=== PATIENT | female | born 1945 | race Caucasian/White ===

== ENCOUNTER 2019-09-03 09:30 | Emergency (ER) | payer MEDICARE, OTHER, SELFPAY ==
[2019-09-03 09:44] VITALS: BP 135/73; PULSE 85; RESP 16; TEMP 36.7; O2SAT 98
--- NOTE | 2019-09-03 09:56 | ED.EYEPROB ---
HPI - Eye Problem General Chief complaint: Eye Problems Stated complaint: right eye Time Seen by Provider: 09/03/19 09:57 Source: patient and RN notes reviewed Mode of arrival: ambulatory Limitations: no limitations History of Present Illness HPI Narrative: This is a 74 years old female presented office for evaluation of right eye irritations for 2 weeks. Symptoms are worsening for the last couple day. Symptoms described as eye irritation with foreign body sensation. Denies eye injury or trauma. Admits to history of glaucoma in the same eye. She did not try to contact her eye doctor. She takes baby aspirin every day. Related Data Home Medications Medication Instructions Recorded Confirmed alpha lipoic acid 200 mg PO DAILY 09/03/19 09/03/19 aspirin [Aspirin Childrens] 81 mg PO DAILY 09/03/19 09/03/19 atorvastatin 20 mg PO DAILY 09/03/19 09/03/19 bimatoprost [Lumigan] 1 drp OPHTHALMIC (EYE) DAILY 09/03/19 09/03/19 bupropion HCl 150 mg PO QAM 09/03/19 09/03/19 cholecalciferol (vitamin D3) 1,250 mcg PO WEEKLY 09/03/19 09/03/19 cyanocobalamin (vitamin B-12) 100 mcg PO DAILY 09/03/19 09/03/19 hydrochlorothiazide 25 mg PO DAILY 09/03/19 09/03/19 levothyroxine 200 mcg PO DAILY 09/03/19 09/03/19 liothyronine 25 mcg PO DAILY 09/03/19 09/03/19 metformin 500 mg PO DAILY 09/03/19 09/03/19 Allergies Allergy/AdvReac Type Severity Reaction Status Date / Time No Known Allergies Allergy Verified 09/03/19 10:01 Review of Systems Review of Systems: Narrative: CONSTITUTIONAL: Denies fever or feeling ill EYES: Denies visual changes; however reports right eye redness, discharge and irritation. ENT: Denies congestion CARDIOVASCULAR: Denies chest pain RESPIRATORY: Denies dyspnea GASTROINTESTINAL: Denies abdominal pain, nausea, vomiting SKIN: Denies rash MUSCULOSKELETAL: Denies acute back pain NEUROLOGIC: Denies lightheaded PMFSH Past Medical History Medical History Diabetes mellitus, type II History of glaucoma HLD (hyperlipidemia) HTN (hypertension) Hypothyroidism Surgical History Surgical History Hx of thyroidectomy Comments At time of signature, I agree with nursing past medical, surgical, social and family history. There is no relevant family history pertinent to the presenting complaint. Exam Narrative: Exam Narrative: GENERAL: This is a well-nourished, well-developed patient, in no apparent distress. EYES: PERRL. Left Sclera clear/white. Right conjunctive are injected with a small black foreign body/lesion at 6'clock. Vision is grossly intact. She wears glasses. Topical anesthetic was instilled with good anesthesia using 1gtt of opth anesthetic agent (tetracaine) into right eye. Fluorescein stain of the R eye was performed showed uptake of dye at 6oclock. No epithelial defect was noted. NO FB, ulcer or dendritic lesions. Upper lid was everted and no FB or lesions were noted. Normal saline irrigation eye solution was performed and the patient tolerated the procedure well, no adverse reaction or complications. CARDIOVASCULAR: Regular rate and rhythm without murmurs, gallops, or rubs. RESPIRATORY: Clear to auscultation. Breath sounds equal bilaterally. No wheezes, rales, or rhonchi. GASTROINTESTINAL: Abdomen soft, non-tender, nondistended. Bowel sounds are active. No guarding. NEURO: awake, alert, and oriented to person, place and time. There were no obvious focal neurologic abnormalities. Steady gait Billy Coma Scale Eye Opening: Spontaneous 4 Billy Coma Scale Motor: Obeys Commands 6 [place] Coma Scale Verbal: Oriented 5 Course Vital Signs Vital signs: Vital Signs Temperature 98.1 F 09/03/19 09:44 Pulse Rate 85 09/03/19 09:44 Respiratory Rate 16 09/03/19 09:44 Blood Pressure 135/73 09/03/19 09:44 Pulse Oximetry 98 09/03/19 09:44 Temperature 98.1 F 09/03/19 09:44 Pulse Rate
== END 2019-09-03 10:30 | disposition home or self-care (01) ==
PROVIDERS: Emergency Provider Nurse Practitioner; PCP Internal Medicine
DX: S05.01XA Injury of conjunctiva and corneal abrasion without foreign body, right eye, initial encounter (principal); Z79.82 Long term (current) use of aspirin; E11.9 Type 2 diabetes mellitus without complications; E78.5 Hyperlipidemia, unspecified; I10 Essential (primary) hypertension; E03.9 Hypothyroidism, unspecified; H40.9 Unspecified glaucoma
CPT/HCPCS: 99203; A9270; G0463

== ENCOUNTER 2023-10-01 09:10 | Outpatient (CLI) | payer MEDICARE, OTHER, SELFPAY ==
--- NOTE | ~2023-10-01 | XR_ITS ---
EXAMINATION: XR hip LT 2V w AP pelvis DATE: 10/01/2023 07:32 INDICATION: Unilateral primary osteoarthritis, left hip. TECHNIQUE: An anteroposterior view of the pelvis and 2 views of left hip were obtained. COMPARISON: Pelvis and hip radiograph 11/21/2021 FINDINGS: Bone alignment is normal. No fracture. There is severe right hip osteoarthritis. There is a dvanced left hip osteoarthritis with flattening at superior femoral head and enlargement of the aceta bulum. IMPRESSION: 1. Advanced left hip osteoarthritis with bone volume loss. 2. Severe right hip osteoarthritis. Reviewed, dictated and finalized at location A.
--- NOTE | 2023-10-01 09:27 | ECG_ITS ---
Test Date: 2023-10-01 09:34:19 Measurements Intervals [place] Rate: 63 P: 35 [place]: 180 QRS: -12 QRSD: 89 T: 7 QT: 418 QTc: 430 Interpretive Statements SINUS RHYTHM MINIMAL Q WAVES- HIGH LATERAL LEADS NONSPECIFIC T-WAVE ABNORMALITY- ANT/INF LEADS BORDERLINE ECG No previous ECG available for comparison Electronically Signed On 10-01-2023 10:47:52 CDT by Jh Pereyra D.O.
[2023-10-01 09:30] LABS: Hematocrit 39.2 % (37.0-47.0); Hemoglobin 12.8 g/dL (12.0-15.0)
[2023-10-01 10:37] LABS: Hemoglobin A1C 5.6 % (<5.7)
[2023-10-01 11:23] LABS: Estimated Glomerular Filt Rate > 60; Glucose 99 mg/dL (65-110)
== END 2023-10-01 09:11 | disposition home or self-care (01) ==
PROVIDERS: PCP Internal Medicine; Visit Provider Orthopaedic Surgery
DX: Z01.818 Encounter for other preprocedural examination (principal); M16.0 Bilateral primary osteoarthritis of hip; E11.9 Type 2 diabetes mellitus without complications; I10 Essential (primary) hypertension
CPT/HCPCS: 36415; 73502; 82040; 82565; 82947; 83036; 85014; 85018; 93005

== ENCOUNTER 2023-11-11 07:35 | Outpatient (CLI) | payer MEDICARE, OTHER, SELFPAY ==
[2023-11-11 09:16] LABS: Basophils Percent Auto 0.3 % (0.2-1.2); Eosinophils Absolute Auto 0.3 K/mm3 (0-0.3); Eosinophils Percent Auto 3.2 % (0-4.4); Hematocrit 39.7 % (37.0-47.0); Hemoglobin 12.5 g/dL (12.0-15.0); Immature Granulocyte Absolute 0.03 K/mm3 (0.00-0.031); Immature Granulocyte Percent A 0.3 % (0-0.5); Lymphocytes Absolute Auto 2.08 K/mm3 (0.9-3.2); Mean Corpuscular HGB Conc 31.5 g/dl (32-36); Mean Corpuscular Hemoglobin 28.6 pg (26-34); Mean Corpuscular Volume 90.8 fl (80-100); Mean Platelet Volume 8.9 fl (7.4-10.4); Monocytes Absolute Auto 0.5 K/mm3 (0.1-0.6); Monocytes Percent Auto 5.9 % (2.6-8.5); Neutrophils Absolute Auto 5.7 K/mm3 (1.3-6.7); Neutrophils Percent Auto 66.3 % (45.5-73.1); Platelet Count Result 197 k/mm3 (150-375); Red Blood Count 4.37 M/mm3 (4.2-5.4); Red Cell Distribution Width 13.7 % (11.5-14.5); White Blood Count 8.7 K/mm3 (4.5-10.0)
[2023-11-11 09:36] LABS: Anion Gap 7 mmol/L (4-12); Blood Urea Nitrogen 22 mg/dL (7-17); Calcium 9.1 mg/dL (8.4-10.2); Carbon Dioxide 30 mmol/L (22-30); Chloride 99 mmol/L (98-107); Estimated Glomerular Filt Rate > 60; Glucose 96 mg/dL (65-110); Potassium 4.6 mmol/L (3.4-5.0); Sodium 136 mmol/L (137-145)
[2023-11-11 09:53] LABS: Urine Cotinine NEGATIVE
[2023-11-11 10:27] LABS: MRSA (PCR) NOT DETECTED (NOT DETECTE)
== END 2023-11-11 07:36 | disposition home or self-care (01) ==
LOC: ANHSURGERY 07:40
PROVIDERS: Anesthesiology; PCP Internal Medicine; Visit Provider Orthopaedic Surgery
DX: Z01.818 Encounter for other preprocedural examination (principal); M16.12 Unilateral primary osteoarthritis, left hip; E11.9 Type 2 diabetes mellitus without complications
CPT/HCPCS: 36415; 80048; 80307; 82040; 85025; 87641

== ENCOUNTER 2023-12-09 00:22 | Day surgery (SDC) | payer MEDICARE, OTHER, SELFPAY ==
[2023-11-11 07:47] VITALS: BMI 37.8
--- NOTE | 2023-11-11 08:18 | PC.NURSE ---
Report to the Outpatient Waiting Room, entrance under the green pavilion located off [facility], at time _9:30 AM on date _12/09/23 . Planned Procedure Time: _11:30 AM . Time changes happen often and if your time is changed the preop area will call you the afternoon before. - You and your visitor will be asked to self-screen and do not enter if you have any COVID symptoms. - A mask is optional within the hospital at this time. Patients may have clear liquids (water, carbonated beverages, clear teas, apple juice) until 3 hours prior to surgery(8:30 AM) with a maximum of 20 ounces. - No food from midnight until time of surgery - Infants may have breast milk until 4 hours before surgery, infant formula 6 hours prior to surgery. - Children will be allowed to drink immediately following surgery. If applicable, please bring a bottle or sippy cup to assist with drinking. Juice, water, soda, and popsicles are readily available. For infants on formula, please bring formula the day of surgery. Pacifiers are allowed. Take the following medications with a SIP of water the morning of surgery: ___ESCITALOPRAM,LEVOTHYROXINE,TIMOLOL EYE DROP,LUMIGAN EYE DROP DO NOT STOP ANY OF YOUR OTHER PRESCRIPTION MEDICATIONS PRIOR TO SURGERY ?EXCEPT THE FOLLOWING Medications to discontinue per physician _HOLD ALL VITAMINS AND SUPPLEMENTS 3 DAYS PRE OP.LAST DOSE 12/05/23_. MAY CONTINUE CELECOBIX___ Please no make-up, nail mohawk, hairspray, perfume, deodorant, or body powder the day of surgery. No jewelry (including any body piercings) or valuables the day of surgery, leave them at home. Please take a shower or bath the night before, or the morning of, surgery with an antibacterial soap. Wear comfortable, loose fitting clothing. Children are encouraged to wear pajamas. - Jewelry must be removed prior to entering the operating room. Rings and piercings that are not removed may be cut off. - The hospital will not accept responsibility for valuables. - Please leave all valuables, including medications, at home the day of surgery. If you are going home after surgery, a licensed sprinkler driver must drive you home. - NO public transportation without another adult if you receive anesthesia. - We recommend that an adult stay with you for 24 hours following discharge. - We also recommend that you do not drive, make important decision, drink alcoholic beverages, or take any drugs that were not prescribed by your health care provider for at least 24 hours after your discharge time. Follow any additional instructions given to you from your surgeon. If you or anyone in your household have experienced Covid symptoms in the past week, please notify your surgeon or the nurse liaison at the phone number below for possible testing. VERBAL AND WRITTEN instructions given to _PATIENT AND DAUGHTER LAY and asked if any additional questions and then verbalized understanding. Patient advised to call surgeon office or pre surgery nurse liaison [phone] if any additional questions.
[2023-11-11 08:41] VITALS: BP 147/72; PULSE 61; RESP 18; TEMP 36.7; O2SAT 98
[2023-12-09] VITALS (13 sets, daily range): BP systolic 111–158; BP diastolic 50–78; PULSE 69–88; RESP 13–20; TEMP 36.3–36.8; O2SAT 91–99
--- NOTE | ~2023-12-09 | XR_ITS ---
EXAMINATION: XR hip LT min 2V DATE: 12/09/2023 14:22 INDICATION: Total left hip arthroplasty. Postop. TECHNIQUE: 2 views of left hip were obtained. COMPARISON: Left hip radiographs 11/10/2023 FINDINGS: There is a total left hip arthroplasty in near-anatomic alignment. No fracture. There is ga s in the soft tissues, consistent with recent surgery. IMPRESSION: 1. Total left hip arthroplasty in near-anatomic alignment. Reviewed, dictated and finalized at location A.
[2023-12-09] MEDS: ACETAMINOPHEN 500 MG TABLET 1000 MG PO (09:25)
[2023-12-09 09:44] LABS: Glucose Point of Care 94 mg/dl (65-105)
[2023-12-09] MEDS: LACTATED RINGERS 1,000 ML 30 ML IV CONT ×2 (10:00→13:58)
--- NOTE | 2023-12-09 11:18 | WPDHPUPDATE1 ---
History and Physical Update Update Date/Time: 12/09/23 11:18 History and Physical has been reviewed, including an updated exam of the patient. There are NO changes in the patient's condition. Risks, benefits, and alternatives have been discussed and questions answered. Patient agrees to proceed with procedure.
[2023-12-09] MEDS: TRANEXAMIC ACID 1,000MG/ISO100 1,000 MG/100 ML BAG 200 MG IVPB ×2 (11:25→13:42)
--- NOTE | 2023-12-09 11:25 | WPDANESEPPF ---
Anes - Initial Pre Proc Eval Procedure: Operation Date: 12/09/23 11:30 Proposed Procedures p Left Total Hip Arthroplasty - William Jensen MD Date/Time: 12/09/23 11:25 Surgeon: William Jensen MD Pre Op Diagnosis: Prim O A Lt Hip Patient Data Age: 78 Gender: F Height: 1.64 m Weight: 101.3 kg Last Vital Signs Temp 36.3 C L 12/09/23 09:50 Pulse 69 12/09/23 09:50 Resp 16 12/09/23 09:50 BP 151/67 H 12/09/23 09:50 Pulse Ox 98 12/09/23 09:50 O2 Del Method Room Air 12/09/23 09:50 Allergies Allergy/AdvReac Type Severity Reaction Status Date / Time No Known Allergies Allergy Verified 12/09/23 10:01 Home Medications Medication Instructions Recorded Confirmed Type alpha lipoic acid 200 mg tablet 200 mg PO DAILY 09/03/19 12/09/23 History bimatoprost 0.01 % eye drops 1 drp ophthalmic (eye) DAILY 09/03/19 12/09/23 History (Lumigan) cyanocobalamin (vitamin B-12) 100 100 mcg PO DAILY 09/03/19 12/09/23 History mcg tablet hydrochlorothiazide 25 mg tablet 25 mg PO DAILY 09/03/19 12/09/23 History levothyroxine 200 mcg tablet 200 mcg PO EVERY OTHER DAY 09/03/19 12/09/23 History escitalopram oxalate 20 mg tablet 20 mg PO DAILY 11/21/21 12/09/23 History glimepiride 1 mg tablet 1 mg PO QAM 11/21/21 12/09/23 History quetiapine 50 mg tablet 50 mg PO QHS 11/21/21 12/09/23 History semaglutide 0.25 mg or 0.5 mg (2 0.25 mg subcut WEEKLY 11/21/21 12/09/23 History mg/1.5 mL) subcutaneous pen injector (Ozempic) timolol maleate 5 mg tablet 5 mg PO BID 11/21/21 12/09/23 History acetaminophen 500 mg capsule 1,000 mg PO Q6H PRN Pain 11/11/23 12/09/23 History atorvastatin 40 mg tablet 40 mg PO DAILY 11/11/23 12/09/23 History celecoxib 200 mg capsule 200 mg PO DAILY 11/11/23 12/09/23 History cholecalciferol (vitamin D3) 50 50 mcg PO DAILY 11/11/23 12/09/23 History mcg (2,000 unit) capsule levothyroxine 175 mcg tablet 175 mcg PO EVERY OTHER DAY 11/11/23 12/09/23 History Laboratory Tests 12/09/23 12/09/23 09:21 09:42 POC Capillary Glucose 94 mg/dl (65-105) Blood Type O Positive Antibody Screen Negative Patient hx anesthesia problems: none Family hx anesthesia problems: none Results Review: All pre-operative results and documents have been reviewed as part of the pre-operative evaluation. [facility] Past Medical History Medical History Bilateral hip joint arthritis Diabetes mellitus, type II History of glaucoma History of thyroid cancer HLD (hyperlipidemia) HTN (hypertension) Hypothyroidism Surgical History Surgical History History of knee replacement both History of rotator cuff surgery both Hx of thyroidectomy (~1978) Social History Social History Smoking status: Never smoker Additional smoking assessment comments: DENIES ANY FORM OF TOBACCO USE Alcohol intake: never Substance use: never Lack of Transportation: YES Lack of Food: Never True Current Housing: I Have Housing Concerned About Future Housing: No Difficulty Paying Gas/Electric Bills: No Difficulty Paying for Meds: No Currently Unemployed: No Education: High School Diploma/GED Difficulty w/ Childcare or Family Care: No Living arrangements: with family Spiritual care concerns: No Anes - Eval Final PreProcedure Day of Procedure 12/09/23 11:25 Patient weight: obese Heart: regular rate and rhythm Lungs: clear to auscultation Airway: Mallampati scale class II Neurological: alert and oriented Last oral intake: >/= 8 hours ASA classification: III Emergent: no Anesthetic plan: proceed Anesthesia type and monitoring: general ETT and standard monitoring Results Review: All pre-operative results and documents have been reviewed as part of the pre-operative evaluation. Inf
[2023-12-09] MEDS: ceFAZolin 2 GM/D5W 50 ML 2 GM/50 ML BAG IVPB ×2 (11:46→20:03)
[2023-12-09] MEDS: SODIUM CHLORIDE 0.9% IV 37.7 ML, MORPHINE SULFATE INJ (*CRX) 2 MG, ROPivacaine HCL 1% 2... INFILTRATE (12:39)
--- NOTE | 2023-12-09 14:02 | W.PM.PROC2 ---
Procedure Note - Detailed Date of Procedure 12/09/23 Pre-op Diagnosis Advanced arthritis left hip. 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 Extreme contracture of the hip. Description of Procedure The patient was given preoperative antibiotics. A general anesthetic was administered. The patient was carefully placed in the lateral decubitus position on the PEG board. The shoulders and hips were carefully positioned for component and leg length positioning reference. The hip was prepped and draped in the usual sterile fashion. A longitudinal incision was created over the posterior aspect of the greater trochanter. Careful dissection was brought down through the deep fascia with electrocautery. A minimally invasive optimized posterior approach to the hip was performed. The short external rotators and capsule were taken down in an L-shaped capsulotomy. The tissue was tagged for later repair using number 2 high strength suture. The femoral neck was measured and taken in situ. The femoral head was removed. The acetabulum was carefully exposed. The inferior capsule was released. The labrum was resected. The acetabulum was sequentially reamed to the intended cup size. The cup was impacted into position with excellent press-fit. Typical anatomic landmarks, including the bony contact points as well as the inferior transverse acetabular ligament were used to confirm cup positioning with preoperative templating. Attention was turned to the femur, which was carefully exposed. The hip was reamed and then broached sequentially. Excellent press-fit was obtained with the broach. The hip was trialed. Measurements were utilized, including the lesser trochanter as well as the center of the femoral head and the tip of the trochanter, and excellent assessment of the offset and leg lengths were confirmed. The real component was impacted into position. Trialing confirmed appropriate leg length and offset with soft tissue balancing as well apparent feel of the leg, both at the knee and the heel. Soft tissues were assessed using the the iliotibial band. Reduction of the posterior capsule and external rotators were also used as a secondary assessment. The hip was copiously irrigated with pulsatile lavage periodically throughout the procedure. The real components were then assembled and reduced. The hip was stable throughout typical maneuvers, including extension, external rotation to 70 degrees, the position of sleep as well as flexion to 90 degrees with internal rotation past 35 degrees. The shake test confirmed stability without impingement. Osteophytes were removed as necessary. The short external rotators and capsule were repaired back to the posterior trochanter through drill holes. The deep fascia was repaired with running number 2 barbed suture, followed by 2-0 Stratafix suture and 3-0 Stratafix suture in the dermis. Steri-Strips were placed on the skin, followed by a sterile occlusive dressing. There were no complications. Meticulous hemostasis was maintained with the AquaMantys device. The patient was brought to the recovery room in stable condition. There were no complications. Physician appeals assistant, Colette Celestin PA-C, required for surgery; including patient positioning, draping, tissue retraction, maintaining instrument position, hip dislocation/ relocation, wound closure, and dressing placement. Implants The Accolade II hip stem, 127 degree size 3 , was utilized with excellent press-fit. The 54 mm Trident II acetabular component was impacted with excellent press-fit stability. 10 degree elevated polyethylene liner the -2.5, 36 mm Biolox ceramic femoral head was utilized. Estimated Blood Loss 500 Drains No Packing No Pathology None sent Compli
[2023-12-09 14:12] LABS: Glucose Point of Care 186 mg/dl (65-105)
[2023-12-09] MEDS: fentaNYL CITRATE INJ (*CRX) 100 MCG/2 ML VIAL 25 MCG IV PUSH ×4 (14:20→14:43)
--- NOTE | 2023-12-09 15:27 | ADMGEN ---
This patient, Arabella Berrios, was admitted to [facility]. Patient/family oriented to hospital policies and general routines including ID bracelet, bed and alarms, visiting hours, pain management, procedures, bathroom and other care routines, personal items, smoking policy, room service/diet, and visiting hours. Information on how to activate the Rapid Response Team has been discussed. Patient/Family are encouraged to report perceived risks to care and to ask questions if they do not understand what they are told or what they should do.
[2023-12-09] MEDS: oxyCODONE/ACETAMINOPHEN (*CRX) 5-325 MG TABLET 1 TABLET PO ×2 (16:12→20:02)
[2023-12-09] MEDS: hydroCHLOROthiazide 25 MG TABLET PO (16:54)
[2023-12-09] MEDS: ATORVASTATIN 40 MG TABLET PO (16:54)
[2023-12-09] MEDS: ESCITALOPRAM OXALATE 10 MG TABLET 20 MG PO (16:55)
[2023-12-09 17:07] LABS: Hemoglobin 12.2 g/dL (12.0-15.0); Mean Corpuscular HGB Conc 31.3 g/dl (32-36); Mean Corpuscular Hemoglobin 28.4 pg (26-34); Mean Corpuscular Volume 90.7 fl (80-100); Mean Platelet Volume 8.8 fl (7.4-10.4); Platelet Count Result 263 k/mm3 (150-375); Red Cell Distribution Width 13.4 % (11.5-14.5); White Blood Count 15.7 K/mm3 (4.5-10.0)
[2023-12-09 17:17] LABS: Band Neutrophils Percent 8 % (0-6); Lymphocytes Absolute Manual 0.62 K/mm3 (1.1-4.5); Lymphocytes Percent Manual 4 % (18-44); Monocytes Absolute Manual 0.15 K/mm3 (0.1-0.90); Monocytes Percent Manual 1 % (3-9); Neutrophils Absolute Manual 14.91 K/mm3 (1.7-7.2); Neutrophils Percent Manual 87 % (46-73); Platelet Estimate Adequate (Adequate); Total Cells Counted 100
[2023-12-09 17:18] LABS: Schistocytes None Seen
[2023-12-09 17:22] LABS: Anion Gap 8 mmol/L (4-12); Blood Urea Nitrogen 17 mg/dL (7-17); Calcium 8.5 mg/dL (8.4-10.2); Carbon Dioxide 28 mmol/L (22-30); Chloride 98 mmol/L (98-107); Estimated CRCL calculation 69 ml/min; Estimated Glomerular Filt Rate > 60; Glucose 207 mg/dL (65-110); Potassium 3.7 mmol/L (3.4-5.0); Sodium 134 mmol/L (137-145)
--- NOTE | 2023-12-09 17:30 | WPDCN ---
Assessment and Plan Assessment and plan (1) Primary osteoarthritis of left hip: Code(s): M16.12 - Unilateral primary osteoarthritis, left hip Status: Acute (2) Hypertension: Code(s): I10 - Essential (primary) hypertension Status: Acute (3) Hyperlipidemia: Code(s): E78.5 - Hyperlipidemia, unspecified Status: Acute (4) Type 2 diabetes mellitus: Code(s): E11.9 - Type 2 diabetes mellitus without complications Status: Acute (5) Hypothyroidism: Code(s): E03.9 - Hypothyroidism, unspecified Status: Acute (6) Depression with anxiety: Code(s): F41.8 - Other specified anxiety disorders Status: Acute (7) Glaucoma: Code(s): H40.9 - Unspecified glaucoma Status: Acute Plan The patient is postoperative day 0 status post left total hip arthroplasty per Dr. Jensen. Wound care, pain control, and DVT prophylaxis will be deferred to the primary service. Agree with PT/OT. Check baseline labs in a.m.. Postoperative vital signs were reviewed and they are stable. Resume glimepiride once tolerating diet. Initiate sliding scale insulin, Accu-Cheks, and hypoglycemic protocol. The rest of her home medications will be reviewed and resumed as appropriate. Thank you for allowing us to participate in this patient's care. Please do not hesitate to contact us with any questions. HPI Data of Consult Date/Time: 12/09/23 17:30 Requesting Physician: William Jensen MD Primary Care Provider: Tom OlsonMD Consult Narrative Reason for consult: Medical management. Narrative: This is a pleasant 78-year-old female with arthritis, hypertension, hyperlipidemia, type 2 diabetes mellitus, hypothyroidism, glaucoma, anxiety, and depression, and anxiety whom the hospitalist service has been consulted for help managing her medical conditions postoperatively. She has had longstanding pain in her left hip which has not been amenable to conservative outpatient treatment and she elected for replacement today. Her surgery was performed under general anesthesia with no immediate complications documented and an estimated blood loss of 500 mL. Postoperatively her pain is well controlled. She has been up to the bathroom but not working with therapy as of yet. She denies paresthesias, skin color, and temperature changes distal to the surgical site. She also denies fever, chills, sweats, chest pain, and shortness of breath. No history of venous thromboembolism. Daughter and friends will be helping her out at home following discharge Regarding her medical conditions, she believes they are well controlled on home medications. Her most recent hemoglobin A1c was reportedly 6.5%. She has not had any issues with extreme highs or lows as of recent. Review of Systems Review of Systems: 12 systems were reviewed and are negative except for as per HPI. [facility] Past Medical History Medical History (Updated 12/09/23 @ 17:36 by Karen Shelton PA-C) Arthritis Depression with anxiety Glaucoma Hyperlipidemia Hypertension Hypothyroidism Thyroid cancer Type 2 diabetes mellitus Surgical History Surgical History (Updated 12/09/23 @ 17:33 by Karen Shelton PA-C) History of bilateral knee arthroplasty History of repair of rotator cuff Bilateral. History of thyroidectomy (1978) Family History Family History (Updated 12/09/23 @ 17:34 by Karen Shelton PA-C) Other Family history non-contributory Social History Social History (Updated 12/09/23 @ 17:35 by Karen Shelton PA-C) Social History: Surrogate medical decision maker: Marlene Kate, daughter. Code status: Full code. Smoking status: Never smoker Alcohol intake: never Substance use: never Do You Feel Safe in your Home?: Yes Lack of Transportation: YES Lack of Food: Never True Current Housing: I Have Housing Concerned About Future Housing: No Difficulty Paying Gas/Electric Bills: N
[2023-12-09] MEDS: SENNA/DOCUSATE SODIUM TABLET 2 TAB PO (18:32)
[2023-12-09] MEDS: ACETAMINOPHEN 325 MG TABLET 650 MG PO (18:32)
[2023-12-09] MEDS: CYCLOBENZAPRINE HCL 10 MG TABLET PO (20:02)
[2023-12-09] MEDS: QUEtiapine FUMARATE 25 MG TABLET 50 MG PO (20:02)
[2023-12-09] MEDS: FAMOTIDINE 20 MG TABLET PO (20:02)
[2023-12-09] MEDS: ASPIRIN 81 MG ENTERIC TABLET PO (20:02)
[2023-12-09] MEDS: INSULIN ASPART (*BKC) 100 UNITS/ML SUB-Q (20:08)
[2023-12-09 20:43] LABS: Glucose Point of Care 203 mg/dl (65-105)
[2023-12-10] MEDS: ACETAMINOPHEN 325 MG TABLET 650 MG PO ×3 (00:28→12:21)
[2023-12-10 01:01] VITALS: BP 117/65; PULSE 83; RESP 18; TEMP 36.7; O2SAT 94
[2023-12-10] MEDS: ceFAZolin 2 GM/D5W 50 ML 2 GM/50 ML BAG IVPB ×2 (04:25→12:21)
[2023-12-10] MEDS: LEVOTHYROXINE SODIUM 100 MCG TABLET PO (05:06)
[2023-12-10] MEDS: LEVOTHYROXINE SODIUM 75 MCG TABLET PO (05:06)
[2023-12-10 05:15] LABS: Basophils Percent Auto 0.2 % (0.2-1.2); Eosinophils Percent Auto 0.1 % (0-4.4); Hematocrit 33.2 % (37.0-47.0); Hemoglobin 10.5 g/dL (12.0-15.0); Immature Granulocyte Absolute 0.06 K/mm3 (0.00-0.031); Immature Granulocyte Percent A 0.5 % (0-0.5); Lymphocytes Absolute Auto 1.37 K/mm3 (0.9-3.2); Lymphocytes Percent Auto 11.2 % (18.3-44.2); Mean Corpuscular HGB Conc 31.6 g/dl (32-36); Mean Corpuscular Hemoglobin 28.9 pg (26-34); Mean Corpuscular Volume 91.5 fl (80-100); Mean Platelet Volume 9.2 fl (7.4-10.4); Monocytes Absolute Auto 0.7 K/mm3 (0.1-0.6); Neutrophils Absolute Auto 10.1 K/mm3 (1.3-6.7); Platelet Count Result 203 k/mm3 (150-375); Red Blood Count 3.63 M/mm3 (4.2-5.4); Red Cell Distribution Width 13.5 % (11.5-14.5); White Blood Count 12.3 K/mm3 (4.5-10.0)
[2023-12-10 05:23] VITALS: BP 120/63; PULSE 85; RESP 18; TEMP 36.7; O2SAT 95
[2023-12-10 05:40] LABS: Alanine Aminotransferase 74 U/L (6-35); Albumin Level 3.3 g/dL (3.5-5.1); Alkaline Phosphatase 77 U/L (38-126); Anion Gap 9 mmol/L (4-12); Aspartate Amino Transferase 61 U/L (14-36); Bilirubin,Total 0.4 mg/dL (0.2-1.3); Blood Urea Nitrogen 21 mg/dL (7-17); Calcium 8.3 mg/dL (8.4-10.2); Carbon Dioxide 29 mmol/L (22-30); Chloride 97 mmol/L (98-107); Estimated CRCL calculation 55 ml/min; Estimated Glomerular Filt Rate > 60; Glucose 125 mg/dL (65-110); Magnesium 1.8 mg/dL (1.6-2.3); Potassium 3.8 mmol/L (3.4-5.0); Sodium 135 mmol/L (137-145)
--- NOTE | 2023-12-10 07:35 | PM.IMPN ---
Progress Note: A&P Assessment and Plan (1) Primary osteoarthritis of left hip: Code(s): M16.12 - Unilateral primary osteoarthritis, left hip Status: Acute Assessment and Plan: 12/10/23: Post op day 1 from left total hip arthroplasty Continue pain control Continue PT/OT Case management following for rehab needs DVT prophylaxis per Ortho team DC baker catheter/voiding trial Continue incentive spirometry while awake Plan for [facility] today (2) Hypertension: Code(s): I10 - Essential (primary) hypertension Status: Acute Assessment and Plan: 12/10/23: Blood pressure ranging Continue HCTZ (3) Hyperlipidemia: Code(s): E78.5 - Hyperlipidemia, unspecified Status: Acute Assessment and Plan: 12/09/22 Continue aspirin and atorvastatin (4) Type 2 diabetes mellitus: Code(s): E11.9 - Type 2 diabetes mellitus without complications Status: Acute Assessment and Plan: 12/10/23: Blood sugars ranging 125-207 Hgb A1C 5.6 on 10/01/23 Accu checks AC/HS Low dose SSI ordered hypoglycemic protocol in place Diabetic diet ordered Hold glimepiride (5) Hypothyroidism: Code(s): E03.9 - Hypothyroidism, unspecified Status: Acute Assessment and Plan: 12/10/23: Continue Synthroid Time Spent With Patient Time with patient: Greater than 35 minutes Subjective Date/time seen: 12/10/23 07:35 Interval history: Interval history: This is a 78 year old female who presented to the hospital on 12/09/23 for elective left total hip arthroplasty with Dr. Jensen. We were consulted for medical management while inpatient. Subjective 12/10/23: She is currently post op day 1. Labs reviewed. Patient denies any fever, chills, nausea, vomiting, diarrhea, abdominal pain, chest pain, shortness a breath. She does rate her pain 5/10 however she is working with therapy at the time. Plan is for her to go to [facility] today. Review of Systems Review of Systems: 12 systems were reviewed and are negative except for as per HPI. Constitutional: Constitutional: Reports as per HPI and Reports no additional constitutional complaints Eyes: Eyes: Reports as per HPI and Reports no additional eye complaints ENT: Reports system reviewed and no additional complaints, except as documented and Reports as per HPI Cardiovascular: Cardiovascular: Reports as per HPI and Reports no additional cardiovascular complaints Respiratory: Respiratory: Reports as per HPI and Reports no additional respiratory complaints Gastrointestinal: Gastrointestinal: Reports as per HPI and Reports no additional gastrointestinal complaints Genitourinary: Genitourinary: Reports no additional female genitourinary complaints and Reports as per HPI Musculoskeletal: Musculoskeletal: Reports no additional musculoskeletal complaints and Reports as per HPI Integumentary/Breasts: Skin/Breast: Reports system reviewed and no additional complaints, except as docu and Reports as per HPI Neurologic: Reports system reviewed and no additional complaints, except as documented and Reports as per HPI Psychiatric: Psychiatric: Reports no additional psychiatric complaints and Reports as per HPI Exam Narrative: General: In no acute distress, well nourished Head: atraumatic, no encephalopathy Eyes: EOMI, PERRLA, sclera clear ENT: moist mucous membranes, nasal passages clear Neck: supple, no JVD, no adenopathy, trachea midline Cardiac: Normal S1 and S2. No murmur, gallops or friction rubs, peripheral pulses intact. Respiratory: Lungs clear to auscultation, no adventitious lung sounds, currently on room air Gastrointestinal: soft, non-distended, non-tender, normoactive bowel sounds. : voiding without difficulty. Extremities: moves all extremities well, no edema Skin: Left hip incision with dressing Neuro: Alert and oriented x4, cranial nerves intact, no neuro deficits. Psych: normal mood, normal affect, interacti
--- NOTE | 2023-12-10 07:35 | P.PNIM_ITS ---
Progress Note: A&P Assessment and Plan (1) Primary osteoarthritis of left hip: Code(s): M16.12 - Unilateral primary osteoarthritis, left hip Status: Acute Assessment and Plan: 12/10/23: * Post op day 1 from left total hip arthroplasty * Continue pain control * Continue PT/OT * Case management following for rehab needs * DVT prophylaxis per Ortho team * DC baker catheter/voiding trial * Continue incentive spirometry while awake * Plan for [facility] today (2) Hypertension: Code(s): I10 - Essential (primary) hypertension Status: Acute Assessment and Plan: 12/10/23: * Blood pressure ranging * Continue HCTZ (3) Hyperlipidemia: Code(s): E78.5 - Hyperlipidemia, unspecified Status: Acute Assessment and Plan: 12/09/22 * Continue aspirin and atorvastatin (4) Type 2 diabetes mellitus: Code(s): E11.9 - Type 2 diabetes mellitus without complications Status: Acute Assessment and Plan: 12/10/23: * Blood sugars ranging 125-207 * Hgb A1C 5.6 on 10/01/23 * Accu checks AC/HS * Low dose SSI ordered * hypoglycemic protocol in place * Diabetic diet ordered * Hold glimepiride (5) Hypothyroidism: Code(s): E03.9 - Hypothyroidism, unspecified Status: Acute Assessment and Plan: 12/10/23: * Continue Synthroid Time Spent With Patient Time with patient: Greater than 35 minutes Subjective Date/time seen: 12/10/23 07:35 Interval history: Interval history: This is a 78 year old female who presented to the hospital on 12/09/23 for elective left total hip arthroplasty with Dr. Jensen. We were consulted for medical management while inpatient. Subjective 12/10/23: She is currently post op day 1. Labs reviewed. Patient denies any fever, chills, nausea, vomiting, diarrhea, abdominal pain, chest pain, shortness a breath. She does rate her pain 5/10 however she is working with therapy at the time. Plan is for her to go to [facility] today. Review of Systems Review of Systems: 12 systems were reviewed and are negativ e except for as per HPI. Constitutional: Constitutional: Reports as per HPI and Reports no additional constitutional complaints Eyes: Eyes: Reports as per HPI and Reports no additional eye complaints ENT: Reports system reviewed and no additional complaints, except as documented and Reports as per HPI Cardiovascular: Cardiovascular: Reports as per HPI and Reports no additional cardiovascular complaints Respiratory: Respiratory: Reports as per HPI and Reports no additional respiratory complaints Gastrointestinal: Gastrointestinal: Reports as per HPI and Reports no additional gastrointestinal complaints Genitourinary: Genitourinary: Reports no additional female genitourinary complaints and Reports as per HPI Musculoskeletal: Musculoskeletal: Reports no additional musculoskeletal complaints and Reports as per HPI Integumentary/Breasts: Skin/Breast: Reports system reviewed and no additional complaints, except as docu and Reports as per HPI Neurologic: Reports system reviewed and no additional complaints, except as documented and Reports as per HPI Psychiatric: Psychiatric: Reports no additional psychiatric complaints and Reports as per HPI Exam Narrative: General: In no acute distress, well nourished Head: atraumatic, no encephalopathy Eyes: EOMI, PERRLA, sclera clear ENT: umesh
[2023-12-10 08:06] LABS: Glucose Point of Care 144 mg/dl (65-105)
[2023-12-10] MEDS: hydroCHLOROthiazide 25 MG TABLET PO (08:07)
[2023-12-10] MEDS: FAMOTIDINE 20 MG TABLET PO (08:07)
[2023-12-10] MEDS: ASPIRIN 81 MG ENTERIC TABLET PO (08:07)
[2023-12-10] MEDS: SENNA/DOCUSATE SODIUM TABLET 2 TAB PO (08:07)
[2023-12-10] MEDS: ATORVASTATIN 40 MG TABLET PO (08:07)
[2023-12-10] MEDS: CELECOXIB 200 MG CAPSULE PO (08:07)
[2023-12-10] MEDS: ESCITALOPRAM OXALATE 10 MG TABLET 20 MG PO (08:07)
[2023-12-10] MEDS: LATANOPROST 0.005% OP SOLN 2.5 ML BTL 1 DROP EACH EYE (08:08)
[2023-12-10] MEDS: polyethylene glycoL 3350 17 GM POWD.PACK PO (08:08)
[2023-12-10] MEDS: oxyCODONE/ACETAMINOPHEN (*CRX) 5-325 MG TABLET 1 TABLET PO (08:12)
--- NOTE | 2023-12-10 08:30 | PM.PNORT ---
Progress Note: A&P Assessment and Plan (1) Status post total hip replacement, left: Code(s): Z96.642 - Presence of left artificial hip joint Status: Acute Assessment and Plan: Postop day 1: Total hip arthroplasty. Patient tolerated procedure well. No complications. Pain manageable with pain medication. No numbness or tingling. Patient is having trouble with therapy and ambulating. Patient's hip was very bad pre-operatively. She had collapse of the femoral head and no joint space. She was very deconditioned. Spoke with the physical therapist. Concern about patient's ability to go up the stairs into her home. Will consult care-coordination for possible SNF/Rehab/Home health at discharge. Will see how she does with another session of therapy today. May need an additional day before discharge. Subjective Subjective Date/Time Seen: 12/10/23 08:30 Interval history: Patient resting comfortably. Tolerable pain. Very flat affect. No other complaints. Review of Systems Review of Systems: All systems reviewed & are unremarkable except as noted in HPI and below Exam Narrative: Obese 78 y/o female. Resting comfortably in bed. Wearing compression socks bilaterally. Dressing dry and intact with no drainage. Mild swelling. No ecchymosis. No erythema. No hematoma. Range of motion limited due to pain. Calf nontender. Thigh nontender. Neurologic status intact. No varicosities. Distal pulses palpable. Objective Data Vital Signs Vital Signs: Vital Signs - 24 hr 12/09/23 09:50 12/09/23 13:58 12/09/23 14:10 Temperature 97.3 F L 98.3 F Pulse Rate 69 83 82 Respiratory Rate 16 13 20 Blood Pressure 151/67 H 158/78 H 135/77 Pulse Oximetry 98 99 99 Oxygen Delivery Room Air Simple Face Mask Simple Face Mask Oxygen Flow Rate 8 8 12/09/23 14:25 12/09/23 14:40 12/09/23 14:55 Temperature Pulse Rate 79 82 82 Respiratory Rate 16 16 16 Blood Pressure 133/72 122/67 120/63 Pulse Oximetry 99 94 96 Oxygen Delivery Simple Face Mask Room Air Nasal Cannula Oxygen Flow Rate 8 2 12/09/23 15:10 12/09/23 15:30 12/09/23 15:45 Temperature 97.7 F 97.9 F Pulse Rate 87 81 77 Respiratory Rate 14 18 20 Blood Pressure 125/65 125/62 127/57 L Pulse Oximetry 97 98 97 Oxygen Delivery Nasal Cannula Oxygen Flow Rate 2 12/09/23 16:30 12/09/23 17:40 12/09/23 19:54 Temperature 97.5 F L 97.7 F 98.1 F Pulse Rate 86 77 88 Respiratory Rate 18 18 18 Blood Pressure 133/63 111/50 L 120/52 L Pulse Oximetry 95 91 94 Oxygen Delivery Oxygen Flow Rate 12/09/23 22:25 12/10/23 01:01 12/10/23 05:23 Temperature 98.1 F 98.1 F Pulse Rate 88 83 85 Respiratory Rate 18 18 18 Blood Pressure 117/65 120/63 Pulse Oximetry 94 94 95 Oxygen Delivery Room Air Oxygen Flow Rate Intake/Output Intake/Output: Intake & Output 12/07/23 12/08/23 12/09/23 12/10/23 23:59 23:59 23:59 23:59 Intake Total 840 300 Balance 840 300 Meds/Results Medications: Active Medications Generic Name Dose Route Start Last Admin Trade Name Freq PRN Reason Stop Dose Admin Acetaminophen 650 mg 12/09/23 18:00 12/10/23 05:06 Acetaminophen 325 Mg Tablet PO 650 mg Q6HR TAVO Administration Aspirin 81 mg 12/09/23 21:00 12/10/23 08:07 Aspirin 81 Mg Enteric Tablet PO 81 mg Q12HR TAVO Administration Atorvastatin Calcium 40 mg 12/09/23 15:40 12/10/23 08:07 Atorvastatin 40 Mg Tablet PO 40 mg DAILY TAVO Administration Celecoxib 200 mg 12/10/23 09:00 12/10/23 08:07 Celecoxib 200 Mg Capsule PO 200 mg DAILY TAVO Administration Cyclobenzaprine HCl 10 mg 12/09/23 15:16 12/09/23 20:02 Cyclobenzaprine Hcl 10 Mg Tablet PO 10 mg Q8H PRN Administration Muscle Spasm Dextrose 12.5 gm 12/09/23 17:38 Dextrose 50% 25 Gm/50 Ml Syringe IV PUSH PRN PRN Hypoglycemia Protocol Escitalopram Oxalate 20 mg 12/09/23 15:40 12/10/23 08:07 Escitalopram Oxalate 10 Mg Tablet
[2023-12-10] MEDS: TIMOLOL MALEATE 0.5% OP SOLN 5 ML BOTTLE 1 DROP EACH EYE (09:30)
[2023-12-10] MEDS: CYCLOBENZAPRINE HCL 10 MG TABLET PO (10:19)
[2023-12-10 10:43] VITALS: BP 110/55; PULSE 87; RESP 16; TEMP 36.7; O2SAT 97
[2023-12-10 11:55] LABS: Glucose Point of Care 152 mg/dl (65-105)
--- NOTE | 2023-12-10 13:26 | WPDANESPN ---
Anes - Prog Note Post-Op Date/Time: 12/10/23 13:26 Cardiovascular status: normal Respiratory status: normal Airway patency: baseline Mental status: baseline Post-Op hydration status: normal Vital Signs: Last Vital Signs Temp 36.7 C 12/10/23 10:43 Pulse 87 12/10/23 10:43 Resp 16 12/10/23 10:43 BP 110/55 L 12/10/23 10:43 Pulse Ox 97 12/10/23 10:43 O2 Del Method Room Air 12/10/23 10:47 O2 Flow Rate 2 12/09/23 15:10 Pain Score (VAS): 05/10 I/O: Intake & Output 12/09/23 12/10/23 12/10/23 23:59 07:59 15:59 Intake Total 290 350 960 Balance 290 350 960 Laboratory Tests 12/10/23 04:43 12/10/23 04:43 12/09/23 12/09/23 12/09/23 14:10 16:51 19:59 WBC 15.7 H RBC 4.30 Hgb 12.2 Hct 39.0 MCV 90.7 MCH 28.4 MCHC 31.3 L RDW 13.4 Plt Count 263 MPV 8.8 Immature Gran % (Auto) Not Reportable Neut % (Auto) Not Reportable Lymph % (Auto) Not Reportable [place] % (Auto) Not Reportable Eos % (Auto) Not Reportable Baso % (Auto) Not Reportable Lymph # (Auto) Not Reportable [place] # (Auto) Not Reportable Eos # (Auto) Not Reportable Baso # (Auto) Not Reportable Abs Immat Gran (auto) Not Reportable Absolute Neuts (auto) Not Reportable Absolute Nucleated RBC Not Reportable Total Counted 100 Neutrophils % (Manual) 87 H Band Neutrophils % 8 H Lymphocytes % (Manual) 4 L Monocytes % (Manual) 1 L Nucleated RBC % Not Reportable Abs Neuts (Manual) 14.91 H Abs Lymphs (Manual) 0.62 L Abs Monocytes (Manual) 0.15 Platelet Estimate Adequate Schistocytes None seen Sodium 134 L Potassium 3.7 Chloride 98 Carbon Dioxide 28 Anion Gap 8 BUN 17 Creatinine 0.70 Estim Creat Clear Calc 69 Estimated GFR > 60 Glucose 207 H POC Capillary Glucose 186 H 203 H Calcium 8.5 Magnesium Total Bilirubin Direct Bilirubin AST ALT Alkaline Phosphatase Total Protein Albumin 12/10/23 12/10/23 12/10/23 04:43 07:58 11:46 WBC 12.3 H RBC 3.63 L Hgb 10.5 L Hct 33.2 L MCV 91.5 MCH 28.9 MCHC 31.6 L RDW 13.5 Plt Count 203 MPV 9.2 Immature Gran % (Auto) 0.5 Neut % (Auto) 82.0 H Lymph % (Auto) 11.2 L [place] % (Auto) 6.0 Eos % (Auto) 0.1 Baso % (Auto) 0.2 Lymph # (Auto) 1.37 [place] # (Auto) 0.7 H Eos # (Auto) 0.0 Baso # (Auto) 0.0 Abs Immat Gran (auto) 0.06 H Absolute Neuts (auto) 10.1 H Absolute Nucleated RBC 0.000 Total Counted Neutrophils % (Manual) Band Neutrophils % Lymphocytes % (Manual) Monocytes % (Manual) Nucleated RBC % 0.0 Abs Neuts (Manual) Abs Lymphs (Manual) Abs Monocytes (Manual) Platelet Estimate Schistocytes Sodium 135 L Potassium 3.8 Chloride 97 L Carbon Dioxide 29 Anion Gap 9 BUN 21 H Creatinine 0.90 Estim Creat Clear Calc 55 Estimated GFR > 60 Glucose 125 H POC Capillary Glucose 144 H 152 H Calcium 8.3 L Magnesium 1.8 Total Bilirubin 0.4 Direct Bilirubin 0.0 AST 61 H ALT 74 H Alkaline Phosphatase 77 Total Protein 6.0 L Albumin 3.3 L Post-procedural complaints: none Patient Feedback: Patient satisfied with anesthetic care.
--- NOTE | 2023-12-10 13:47 | PC.NURSE ---
Spoke with Dr. Altman office to let them know that per care coordination and physical therapy patient okay to discharge to [facility] today after 3pm
--- NOTE | 2023-12-10 14:13 | PM.DS ---
DS: Admitting Diagnosis Discharge Date 12/10/23 Admitting Diagnosis Hip arthritis. DS: Discharge Diagnosis Discharge Diagnosis (1) Status post total hip replacement, left: Code(s): Z96.642 - Presence of left artificial hip joint Status: Acute Assessment and Plan: Postop day 1: Left Total hip arthroplasty. Patient tolerated procedure well. No complications. Pain manageable with pain medication. No numbness or tingling. Patient was very deconditioned prior to surgery. Severely arthritic hip with collapse of the femoral head and loss of joint space. She will benefit from acute rehab. We had a lengthy discussion regarding postoperative wound care, limitations, expectations, and exercises. Patient shows good understanding. Patient has had initial physical therapy and is tolerating it well. DVT prophylaxis: 81 mg baby aspirin b.i.d. for 14 days. Short frequent walks. Pain medication: Percocet. Patient has followup appointment with Dr. Jensen in 3 weeks Plan Postop day 1: Total hip arthroplasty. Patient tolerated procedure well. No complications. Pain manageable with pain medication. No numbness or tingling. Patient is having trouble with therapy and ambulating. Patient's hip was very bad pre-operatively. She had collapse of the femoral head and no joint space. She was very deconditioned. Spoke with the physical therapist. Concern about patient's ability to go up the stairs into her home. Patient progressing well with therapy this afternoon. She was accepted to acute rehab today. Okay for discharge to acute rehab. We had a lengthy discussion regarding postoperative wound care, limitations, expectations, and exercises. Patient shows good understanding. Patient has had initial physical therapy and is tolerating it well. DVT prophylaxis: 81 mg baby aspirin b.i.d. for 14 days. Short frequent walks. Pain medication: Percocet. Ibuprofen. Patient has followup appointment with Dr. Jensen in 3 weeks DS: Summary Hospital Course Reason for hospitalization: Total hip arthroplasty Hospital Course: Patient tolerated procedure well. Has had initial PT/OT. Recommend acute rehab. Status at Discharge Functional status at discharge: uses cane/walker Overall status at discharge: patient is progressing back to baseline Time Spent with Patient Time attestation: Total time spent providing and/or coordinating discharge services: Exam Narrative: Obese 78 y/o female. Resting comfortably in bed. Wearing compression socks bilaterally. Dressing dry and intact with no drainage. Moderate swelling. No ecchymosis. No erythema. No hematoma. Range of motion limited due to pain. Calf nontender. Thigh nontender. Neurologic status intact. No varicosities. Distal pulses palpable. DS: Data Data Completed and Pending Labs on day of discharge: Labs from last 24 hours 12/10/23 12/10/23 12/10/23 11:46 07:58 04:43 WBC 12.3 H RBC 3.63 L Hgb 10.5 L Hct 33.2 L MCV 91.5 MCH 28.9 MCHC 31.6 L RDW 13.5 Plt Count 203 MPV 9.2 Immature Gran % (Auto) 0.5 Neut % (Auto) 82.0 H Lymph % (Auto) 11.2 L [place] % (Auto) 6.0 Eos % (Auto) 0.1 Baso % (Auto) 0.2 Lymph # (Auto) 1.37 [place] # (Auto) 0.7 H Eos # (Auto) 0.0 Baso # (Auto) 0.0 Abs Immat Gran (auto) 0.06 H Absolute Neuts (auto) 10.1 H Absolute Nucleated RBC 0.000 Total Counted Neutrophils % (Manual) Band Neutrophils % Lymphocytes % (Manual) Monocytes % (Manual) Nucleated RBC % 0.0 Abs Neuts (Manual) Abs Lymphs (Manual) Abs Monocytes (Manual) Platelet Estimate Schistocytes Sodium 135 L Potassium 3.8 Chloride 97 L Carbon Dioxide 29 Anion Gap 9 BUN 21 H Creatinine 0.90 Estim Creat Clear Calc 55 Estimated GFR > 60 Glucose 125 H POC Capillary Glucose 152 H 144 H Calcium 8.3 L Magnesium 1.8 Total Bi
[2023-12-10 14:36] VITALS: BP 97/45; PULSE 86; RESP 16; TEMP 37; O2SAT 94
== END 2023-12-10 15:35 | disposition home or self-care (01) ==
LOC: ANHSURGERY 14:14 → ANH2MED 15:35
PROVIDERS: Physician Assistant Surgical; PCP Internal Medicine; Visit Provider Orthopaedic Surgery
PROC: (CPT 27130; principal; 2023-12-09 11:30)
DX: M16.12 Unilateral primary osteoarthritis, left hip (principal); M25.752 Osteophyte, left hip; I10 Essential (primary) hypertension; E78.5 Hyperlipidemia, unspecified; E11.9 Type 2 diabetes mellitus without complications; E03.9 Hypothyroidism, unspecified; F41.8 Other specified anxiety disorders; E66.9 Obesity, unspecified; Z68.37 Body mass index [BMI] 37.0-37.9, adult; Z79.84 Long term (current) use of oral hypoglycemic drugs; Z79.85 Long-term (current) use of injectable non-insulin antidiabetic drugs; Z79.891 Long term (current) use of opiate analgesic; Z79.51 Long term (current) use of inhaled steroids; Z79.52 Long term (current) use of systemic steroids; Z98.890 Other specified postprocedural states; Z85.850 Personal history of malignant neoplasm of thyroid
CPT/HCPCS: 27130; 36415; 73502; 80048; 80076; 82948; 83735; 85025; 86850; 86900; 86901; 97110; 97116; 97161; 97165; 97530; 97535; A9270; C1776; J0171; J0330; J0360; J0690; J1100; J1170; J1815; J1885; J2270; J2405; J2704; J2795; J3010; J7120

== ENCOUNTER 2023-12-31 10:31 | Outpatient (CLI) | payer MEDICARE, OTHER, SELFPAY ==
--- NOTE | ~2023-12-31 | XR_ITS ---
AP and lateral views of the left hip Clinical history: Pain Findings: No acute fracture or dislocation is seen. Left hip arthroplasty in place, without evidence of hardware complication. Soft tissues are unremarkable. Impression: No acute abnormality. Left hip arthroplasty. Reviewed, dictated and finalized at location . Impression: No acute abnormality. Left hip arthroplasty.
== END 2023-12-31 10:32 | disposition home or self-care (01) ==
PROVIDERS: PCP Internal Medicine; Visit Provider Orthopaedic Surgery
DX: Z47.1 Aftercare following joint replacement surgery (principal)
CPT/HCPCS: 73502

== ENCOUNTER 2024-01-28 09:10 | Outpatient (CLI) | payer MEDICARE, OTHER, SELFPAY ==
--- NOTE | ~2024-01-28 | XR_ITS ---
AP view of the pelvis and AP and lateral views of the left hip Clinical history: Pain Findings: No acute fracture or dislocation is seen. Left hip arthroplasty in place. There is advanced degenerative change of the right hip joint, with diffuse joint space narrowing. There is advanced de generative change of both SI joints.. Soft tissues are unremarkable. Impression: Left hip arthroplasty in place. Degenerative changes of the right hip and SI joints, as above. Reviewed, dictated and finalized at location M. Impression: Left hip arthroplasty in place. Degenerative changes of the right hip and SI joints, as above.
== END 2024-01-28 09:11 | disposition home or self-care (01) ==
LOC: ANHIMG 09:15
PROVIDERS: PCP Internal Medicine; Visit Provider Orthopaedic Surgery
DX: Z96.642 Presence of left artificial hip joint (principal)
CPT/HCPCS: 73502